=== PATIENT | female | born 1990 | race Caucasian/White ===

== ENCOUNTER 2018-02-08 17:33 | Emergency (ER) | payer OTHER ==
--- NOTE | 2018-02-08 18:12 | ED Physician Documentation ---
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 There is no loss of consciousness and she was doing okay but today she has a gradual onset global headache with light sensitivity and had potentially decreased hearing in the left ear which is now gone.) Review of Systems Constitutional: denies: Fever, Chills Eyes: denies: Loss of vision, Decreased vision, Photophobia Ears: reports: Loss of hearing. denies: Ear pain, Drainage/discharge Nose: denies: Rhinorrhea / runny nose, Congestion PD PAST MEDICAL HISTORY - Present Medications Home Medications: Ambulatory Orders Medication Instructions Recorded Confirmed No Known Home Medications [No 02/08/18 02/08/18 Known Home Medications] - Allergies Allergies/Adverse Reactions: Allergies Allergy/AdvReac Type Severity Reaction Status Date / Time No Known Drug Allergies Allergy Verified 02/08/18 17:42 - Social History Does the pt smoke?: No Smoking Status: Never smoker Does the pt drink ETOH?: Yes Does the pt have substance abuse?: No PD ED PE NORMAL - Vitals Vital signs reviewed: Yes - General General: Alert and oriented X 3, No acute distress - HEENT HEENT: PERRL, EOMI, Ears normal, Moist mucous membranes, Pharynx benign - Neck Neck: Supple, no meningeal sign, No bony TTP - Neuro Neuro: Alert and oriented X 3, Normal speech - Psych Psych: Normal mood, Normal affect Results - Vitals Vitals: Vital Signs - 24 hr 02/08/18 02/08/18 17:37 19:45 Temperature 36.4 C L 37.1 C Heart Rate 67 78 Respiratory 16 18 Rate Blood Pressure 114/61 103/73 O2 Saturation 98 99 Oxygen O2 Source Room air - Rads (name of study) Ct Head Radiology: EMP read contemporaneously (normal) PD MEDICAL DECISION MAKING - ED course ED course: She declines pain medication on initial evaluation. Departure - Departure Disposition: 01 Home, Self Care Clinical Impression: Concussion Qualifiers: Encounter type: initial encounter Loss of consciousness presence/duration: without LOC Qualified Code(s): S06.0X0A - Concussion without loss of consciousness, initial encounter Condition: Stable Instructions: ED Concussion Comments: Call your doctor to arrange a follow-up appointment, make the next available appointment. In the interim, return anytime if worse or if new symptoms develop. Discharge Date/Time: 02/08/18 19:51
--- NOTE | 2018-02-08 19:13 | CT Preliminary Report ---
Exam: CT HEAD W/O IMPRESSION: Normal head CT. [facility] SITE ID: [id number]
--- NOTE | 2018-02-08 19:35 | CT Report ---
EXAM: CT HEAD EXAM DATE: 02/08/2018 06:46 PM. CLINICAL HISTORY: Headache after head trauma. COMPARISON: None. TECHNIQUE: Multiaxial CT images were obtained from the foramen magnum to the vertex. Reformats: Coron al. IV contrast: None. In accordance with CT protocol optimization, one or more of the following dose reduction techniques w ere utilized for this exam: automated exposure control, adjustment of mA and/or KV based on patient s ize, or use of iterative reconstructive technique. FINDINGS: Parenchyma: No intraparenchymal hemorrhage. No evidence of mass, midline shift, or CT findings of inf arction. Bhatia-white differentiation is distinct. Extraaxial Spaces: Normal for age. No subdural or epidural collections identified. Ventricles: Normal in size and position. Sinuses and Orbits: Imaged paranasal sinuses, orbits, and mastoids show no significant abnormality. Bones: No evidence of fracture or calvarial defect. Other: None. IMPRESSION: Normal head CT. [facility] Referring Provider Line: [phone] SITE ID: [id number]
[2018-02-08 19:46] VITALS: BP 103/73
== END 2018-02-08 19:51 | disposition home or self-care (01) ==
LOC: ED 17:33
DX: S06.0X0A Concussion without loss of consciousness, initial encounter (principal); W22.8XXA Striking against or struck by other objects, initial encounter
CPT/HCPCS: 70450; 99283

== ENCOUNTER 2019-05-23 17:50 | Inpatient (IN) | payer OTHER ==
[2019-05-23] MEDS ORDERED: SODIUM CHLORIDE FLUSH 0.9% 10 ML SYRINGE ONE ×2 (18:39→19:12)
--- NOTE | 2019-05-23 19:07 | HISTORY & PHYSICAL EXAMINATION ---
Admit History - Visit Reason Visit Reason: Other (Induction of laborAt 39 weeks and 4 days estimated gestational age) - : 1 Parity: 0 Care: positive: [facility], Other (Transfer of care at 30 weeks estimated gestational age) Risk/History: positive: None Complications This : positive: None Smoking Status: Never smoker - Mother's Labs Mother's Blood Type: positive: O Mother's RH: positive: Positive GBS: positive: Group B Step Negative Rubella Status: positive: Unknown - Other Maternal History Other Maternal History: Patient is a 28-year-old G1, P0 at 39 weeks 4 days estimated gestational age with a that has been uncomplicated to date. She presents presents for elective induction of labor. Initial SVE is 1-09/23/59/-3. She is GBS negative. Blood type is O+. Rubella status is unknown. Glucola was 122. Tdap is complete. Endorses movement. Denies loss of fluid/contractions/vaginal bleeding. Meds/Allgy - Home Medications Home Medications: Ambulatory Orders Medication Instructions Recorded Confirmed No Known Home Medications 02/08/18 02/08/18 - Allergies Allergies/Adverse Reactions: Allergies Allergy/AdvReac Type Severity Reaction Status Date / Time No Known Drug Allergies Allergy Verified 02/08/18 17:42 Review of Systems - Other Findings Other Findings: As per HPI otherwise remaining systems are negative Physical - Abdominal Exam Vital Signs: 118/69 87 17 Contraction Intensity: positive: Irritability Uterine Resting Tone: positive: Soft - Monitoring Strip Review: positive: Category I - Presentation Presentation: positive: Vertex - Vaginal Exam Membranes: positive: Membranes intact Dilation (in cm): 1.5 Effacement (%): 60 Station: positive: -3 Cervical Position: positive: Midposition - Speculum Exam Speculum Exam Performed: positive: No Plan for Labor - Plan For Labor Plan for Labor: 28-year-old G1, P0 at 39 weeks 4 days estimated gestational age here for induction of labor. Induction of labor: -Unfavorable cervix with low Ryan score. Will start with cervical ripening with misoprostol 50 mcg buccal/oral Q4H -We have discussed the possibility of using a Scherer bulb after initiation of misoprostol -Pitocin once cervix is favorable -Consider AROM when appropriate well-being: -Category 1 tracing -GBS negative -Vertex confirmed by bedside ultrasound -Appropriately grown Pain: -Epidural as desired -Nitrous oxide as desired -Fentanyl 50 mcg IV available for maximum dosage of 200 mcg overall. Not to be administered after 7 cm dilation. Anticipate
[2019-05-23] MEDS ORDERED: ONDANSETRON ODT 4 MG TABLET TL PRN (19:15)
[2019-05-23] MEDS ORDERED: METOCLOPRAMIDE 10 MG/2 ML VIAL IVP PRN ×2 (19:15)
[2019-05-23] MEDS ORDERED: miSOPROStoL 200 MCG TABLET PR ONE (19:15)
[2019-05-23] MEDS ORDERED: miSOPROStoL 200 MCG TABLET PR PRN (19:15)
[2019-05-23] MEDS ORDERED: SODIUM CHLORIDE FLUSH 0.9% 10 ML SYRINGE IVP PRN ×2 (19:15)
[2019-05-23] MEDS ORDERED: METHYLERGONOVINE 0.2 MG/ML AMP IM PRN (19:15)
[2019-05-23] MEDS ORDERED: METOCLOPRAMIDE 10 MG TABLET PO PRN (19:15)
[2019-05-23] MEDS ORDERED: ONDANSETRON 4 MG/2 ML VIAL IVP PRN ×2 (19:15)
[2019-05-23] MEDS ORDERED: OXYTOCIN/DEXTROSE 5 % 30 UNIT/500 ML BAG IV PRN (19:15)
[2019-05-23] MEDS ORDERED: CARBOPROST TROMETHAMINE 250 MCG/ML AMP IM PRN (19:15)
[2019-05-23] MEDS ORDERED: NALBUPHINE 10 MG/ML AMP IVP PRN (19:28)
[2019-05-23] MEDS ORDERED: diphenhydrAMINE INJ 50 MG/ML VIAL IVP PRN (19:28)
[2019-05-23] MEDS ORDERED: diphenhydrAMINE 25 MG CAPSULE PO PRN (19:28)
[2019-05-23 19:34] LABS: BASOPHILS % (AUTO) 0.3 %; EOSINOPHILS # (AUTO) 0.1 10^3/uL (0.0-0.7); EOSINOPHILS % (AUTO) 0.8 %; HGB - HEMOGLOBIN 11.5 g/dL (12.0-16.0); LYMPHOCYTES # (AUTO) 2.3 10^3/uL (1.5-3.5); LYMPHOCYTES % (AUTO) 21.9 %; MEAN CORPUSCULAR HEMOGLOBIN 27.3 pg (27.0-31.0); MEAN CORPUSCULAR HGB CONC 33.8 g/dL (32.0-36.0); MEAN CORPUSCULAR VOLUME 80.6 fL (81.0-99.0); MEAN PLATELET VOLUME 12.1 fL (7.9-10.8); MONOCYTES # (AUTO) 0.7 10^3/uL (0.0-1.0); MONOCYTES % (AUTO) 7.1 %; NEUTROPHILS # (AUTO) 7.1 10^3/uL (1.5-6.6); NEUTROPHILS % (AUTO) 69.2 %; PLT - PLATELET COUNT 151 10^3/uL (130-450); RED BLOOD COUNT 4.22 10^6/uL (4.20-5.40); RED CELL DISTRIBUTION WIDTH 13.6 % (12.0-15.0); WHITE BLOOD COUNT 10.3 x10^3/uL (4.8-10.8)
[2019-05-23] MEDS: miSOPROStoL 100 MCG TABLET BC SCH (20:20)
[2019-05-23] MEDS: ACETAMINOPHEN 325 MG TABLET PO SCH (23:33)
[2019-05-24] MEDS: miSOPROStoL 100 MCG TABLET BC SCH ×5 (00:19→13:25)
[2019-05-24] MEDS: SODIUM CHLORIDE FLUSH 0.9% 10 ML SYRINGE IVP SCH ×2 (00:22→21:15)
[2019-05-24] MEDS ORDERED: SODIUM CHLORIDE FLUSH 0.9% 10 ML SYRINGE IVP SCH (01:00)
--- NOTE | 2019-05-24 01:19 | PROVIDER PROGRESS NOTE ---
Labor Progress Note - Uterine Monitoring Contraction Frequency (min/apart): Intermittent Contraction Intensity: positive: Mild - Monitoring Monitor Mode: positive: External ultrasound Heart Rate Baseline: 130 Heart Rate Variability: positive: Moderate (6-25 bmp) Accelerations: positive: Present, 15x15 Decelerations: positive: None Strip Review: positive: Category I - Labor Progress Note Labor Progress Note/Additional Text: Status post misoprostol 50 mcg x 2 Category 1 tracing Continue to monitor and progress with cervical ripening
[2019-05-24] MEDS: LEVOTHYROXINE 25 MCG TABLET PO SCH (05:53)
[2019-05-24] MEDS: OXYTOCIN/DEXTROSE 5 % 30 UNIT/500 ML BAG IV SCH (05:59)
[2019-05-24] MEDS: LACTATED RINGERS 1,000 ML IV SCH ×4 (06:00→21:15)
[2019-05-24] MEDS: ACETAMINOPHEN 325 MG TABLET PO SCH (06:01)
--- NOTE | 2019-05-24 13:28 | PROVIDER PROGRESS NOTE ---
Labor Progress Note - Uterine Monitoring Contraction Frequency (min/apart): Q3 min Contraction Intensity: positive: Mild to moderate Uterine Resting Tone: positive: Soft - Monitoring Monitor Mode: positive: External ultrasound Heart Rate Baseline: 135 Heart Rate Variability: positive: Moderate (6-25 bmp) Accelerations: positive: Present, 15x15 Decelerations: positive: None (Cat I tracing) Strip Review: positive: Category I - Vaginal Exam Dilation (in cm): 2 Effacement (%): 80 Station: -1 Cervical Position: Midposition - Labor Progress Note Labor Progress Note/Additional Text: No complaints. Contractions beginning to get more uncomfortable and are apparent at the top of the uterus as well is in the lower pubic area. Status post misoprostol 50 mcg BC x4. Due for fifth dose now. Will continue with cervical ripening and consider placement of Scherer balloon after fifth or sixth dose Category 1 tracing Anticipate
--- NOTE | 2019-05-24 22:45 | PROVIDER PROGRESS NOTE ---
Subjective - Prog Note Date Prog Note Date: 05/24/19 Prog Note Time: 22:20 - Subjective Subjective: CTX Painful. Status post misoprostol x5 doses. Unsure if she wants an epidural yet at this point. Manpreet every 3 to 4 minutes. No loss of fluid no vaginal bleeding Objective - Vital Signs/Intake & Output Intake & Output: Intake & Output 05/21/19 05/22/19 05/23/19 05/24/19 23:59 23:59 23:59 23:59 Intake Total 800 Balance 800 - Lab Results Fish Bones: 05/23/19 18:40 - Other Results/Comments Other Results/Comments: SVE 2/90/ 0 mid membranes intact Category 1 tracing Assessment/Plan - Problem List (1) Elective induction of labor planned Impression: Status post misoprostol 50 mcg BC x5 Manpreet too frequently for misoprostol at this time; SVE unchanged. Scherer balloon placed with 40 in the uterine balloon and 20 in the vaginal balloon. Category 1 tracing Anticipate
[2019-05-24] MEDS: fentaNYL 100 MCG/2 ML VIAL IVP PRN ×2 (22:46→23:50)
[2019-05-25] MEDS: fentaNYL 100 MCG/2 ML VIAL IVP PRN ×2 (00:48→01:53)
[2019-05-25] MEDS: LACTATED RINGERS 1,000 ML IV SCH ×5 (01:54→20:49)
--- NOTE | 2019-05-25 04:05 | ANESTHESIA ---
Pre-Anesthesia VS, & Labs - Diagnosis Active labor - Procedure vaginal delivery Height 5 ft 4 in Weight (kg) 70.632 kg Body Mass Index 20.5 - NPO Last Fluid Intake: sips of H2O Last Food Intake: 1900 - Is Patient ?: Yes - Lab Results Current Lab Results: Laboratory Tests 05/23/19 18:40: WBC 10.3, RBC 4.22, Hgb 11.5 L, Hct 34.0 L, MCV 80.6 L, MCH 27.3, MCHC 33.8, RDW 13.6, Plt Count 151, MPV 12.1 H, Neut # (Auto) 7.1 H, Lymph # (Auto) 2.3, [place] # (Auto) 0.7, Eos # (Auto) 0.1, Baso # (Auto) 0.0, Absolute Nucleated RBC 0.00, Nucleated RBC % 0.0 Fish Bones: 05/23/19 18:40 Home Medications and Allergies Active Medications Acetaminophen (Tylenol) 650 mg PO Q6H [facility] Last Admin: 05/24/19 06:01 Dose: Not Given Diphenhydramine HCl (Benadryl) 25 mg PO QPM PRN PRN Reason: Insomnia Last Admin: 05/24/19 00:31 Dose: 25 mg Diphenhydramine HCl (Benadryl Inj) 25 mg IVP Q6H PRN PRN Reason: Allergy Symptoms Lactated Ringer's (Lr) 1,000 mls @ 150 mls/hr IV .Q6H40M [facility] Last Admin: 05/25/19 01:54 Dose: 150 mls/hr Lactated Ringer's (Lr) 1,000 mls @ 100 mls/hr IV .Q10H [facility] Last Admin: 05/24/19 06:00 Dose: Not Given OXYTOCIN/DEXTROSE 5 % (Pitocin/Dextrose 5%) 30 unit in 500 mls @ 1 mls/hr IV TITR [facility]; Protocol Last Admin: 05/24/19 05:59 Dose: Not Given OXYTOCIN/DEXTROSE 5 % (Pitocin/Dextrose 5%) 30 unit in 500 mls @ 999 mls/hr IV PRN PRN; Protocol PRN Reason: POST- HEMORR PREVENTION Levothyroxine Sodium (Synthroid) 50 mcg PO QDAC [facility] Last Admin: 05/24/19 05:53 Dose: 50 mcg Methylergonovine Maleate (Methergine Inj) 0.2 mg IM Q4H PRN PRN Reason: Post- Hemorrhage Metoclopramide HCl (Reglan) 10 mg PO Q6H PRN PRN Reason: Nausea / Vomiting Metoclopramide HCl (Reglan Inj) 10 mg IVP Q6H PRN PRN Reason: Nausea / Vomiting Nalbuphine HCl (Nubain) 5 mg IVP PRN PRN PRN Reason: ITCHING Ondansetron HCl (Zofran Inj) 4 mg IVP Q4H PRN PRN Reason: Nausea / Vomiting Ondansetron HCl (Zofran Odt) 4 mg TL Q4HR PRN PRN Reason: Nausea / Vomiting Sodium Chloride (Normal Saline Flush 0.9%) 10 ml IVP PRN PRN PRN Reason: NEEDED PER PROVIDER ORDERS Last Admin: 05/24/19 13:02 Dose: 10 ml Sodium Chloride (Normal Saline Flush 0.9%) 10 ml IVP 0100,0900,1700 [facility]O Last Admin: 05/24/19 21:15 Dose: 10 ml No Known Home Medications 02/08/18 Synthroid po Allergies/Adverse Reactions: Allergies Allergy/AdvReac Type Severity Reaction Status Date / Time No Known Drug Allergies Allergy Verified 02/08/18 17:42 Anes History & Medical History - Anesthetic History Family history of Anesthesia Complications: Denies Family history of Malignant Hyperthermia: Denies - Medical History Cardiovascular: reports: None Pulmonary: reports: None Gastrointestinal: reports: GERD (during ) Urinary: reports: None Neuro: reports: None Musculoskeletal: reports: None Endocrine/Autoimmune: reports: HyPOthyroidism Blood Disorders: reports: None Skin: reports: None Smoking Status: Never smoker Psychosocial: reports: No issues indicated - Obstetrical History : 1 Parity: 0 Events: positive: None Complications: positive: None Exam General: Alert, Oriented x3, Cooperative, No acute distress Dental: WNL Mouth Openin Fingerbreadth Neck Mobility: Normal Mallampati classification: II Thyromental Distance: greater than 6 cm Plan Anesthesia Type: Epidural Consent for Procedure(s) Verified and Reviewed: Yes Code Status: Attempt Resuscitation ASA classification: 2-Mild systemic disease Is this case an emergency?: No
[2019-05-25] MEDS ORDERED: fent/BUPIV 2 MCG/0.125% 250 ML EP ONE (04:11)
[2019-05-25] MEDS ORDERED: NALBUPHINE 10 MG/ML AMP IVP PRN (04:47)
[2019-05-25] MEDS ORDERED: ONDANSETRON 4 MG/2 ML VIAL IVP PRN (04:47)
[2019-05-25] MEDS ORDERED: fent/BUPIV 2 MCG/0.125% 250 ML EP PRN (04:47)
[2019-05-25] MEDS ORDERED: NALOXONE 0.4 MG/ML VIAL IVP PRN (04:47)
[2019-05-25] MEDS: LEVOTHYROXINE 25 MCG TABLET PO SCH (05:27)
[2019-05-25] MEDS: ePHEDrine 50 MG/ML VIAL IVP PRN ×5 (05:58→06:40)
[2019-05-25] MEDS ORDERED: ePHEDrine 50 MG/ML VIAL IVP ONE (05:59)
[2019-05-25] MEDS: SODIUM CHLORIDE FLUSH 0.9% 10 ML SYRINGE IVP SCH (08:30)
[2019-05-25] MEDS: OXYTOCIN/DEXTROSE 5 % 30 UNIT/500 ML BAG IV SCH (08:30)
--- NOTE | 2019-05-25 14:36 | PROVIDER PROGRESS NOTE ---
Subjective - Prog Note Date Prog Note Date: 05/25/19 Prog Note Time: 13:00 (reflects culmination of multple events) - Subjective Subjective: Scherer balloon fell out at approximately 1 this a.m. SVE at that time was 460 and -1. Membranes were intact. Kaylee has had an epidural placed. Tracing has alternated between periods of category 1 and category 2 with category 2. Is notable for minimal variability and lack of accelerations. tracing responds well to scalp stim and acoustic stem. Underwent AROM notable for passage of blood-tinged fluid. No further vaginal bleeding. Pitocin has been started at 1 milliunit/min. One episode of vomiting after drinking a protein juice. Otherwise pain is well controlled with LEP and patient is without complaint. Objective - Vital Signs/Intake & Output Intake & Output: Intake & Output 05/22/19 05/23/19 05/24/19 05/25/19 23:59 23:59 23:59 23:59 Intake Total 800 2657.5 Output Total 450 Balance 800 2207.5 - Objective General Appearance: positive: No acute distress Eyes: OD Lid inflammation Respiratory: positive: Chest non-tender, No respiratory distress Cardiovascular: positive: Regular rate & rhythm Abdomen: positive: Non-tender Back: positive: Nml inspection Skin: positive: Color nml Extremities: positive: Non-tender Neurologic/Psychiatric: positive: Oriented x3 - Lab Results Fish Bones: 05/23/19 18:40 Assessment/Plan - Problem List (1) Elective induction of labor planned Impression: Induction of labor: -Status post misoprostol x5 doses -Scherer bulb placed and fell out -Status post AROM notable for passage of blood-tinged fluid; now clear -Pitocin initiated per protocol well-being: -Category 1 tracing with extended periods of category 2 tracing. Responds appropriately to head stimulation and vibracoustic stim. -Continue to monitor closely Continue with induction of labor. Close monitoring given intermittent periods of category 2 tracing. tracing continues to show reactivity to stimulation. Pitocin per protocol Anticipate
[2019-05-25] MEDS ORDERED: LACTATED RINGERS 1,000 ML IV ONE (20:59)
[2019-05-26] MEDS ORDERED: WITCH HAZEL/GLYCERIN 1 PAD TOP PRN (00:28)
[2019-05-26] MEDS ORDERED: HYDROCORTISONE 1% CREAM 28 GM TUBE PR PRN (00:28)
--- NOTE | 2019-05-26 00:33 | DELIVERY NOTE ---
Delivery Note - Labor Labor: positive: Induced by oxytocin - Infant Delivery Method Delivery Method: positive: Spontaneous vaginal delivery - Cervical Ripening Method Cervical Ripening Method: positive: Balloon device, Misoprostil - Presentation Presentation: positive: Vertex - Nuchal Cord Nuchal Cord: positive: None - Anesthetic Anesthetic Type: - Amniotic Fluid Description Amniotic Fluid Description: positive: Bloody - Laceration Laceration: positive: None - Delivery Outcome Delivery Outcome: positive: Livebirth - [place]: positive: Placed in direct skin contact with mother, Suctioned, Bulb syringe, Stimulated, Warmed, [place] used [place] sex: positive: Male - Cord Cord: positive: 3 vessels - Placenta Placenta: positive: Intact - Estimated Blood Loss Estimated Blood Loss (in cc): 100 - Post Delivery Events Post Delivery Events: positive: No post delivery events - Delivery Comments (Free Text/Narrative) Delivery Comments (Free Text/Narrative): Patient is a 28-year-old G1 now P1 admitted at At 39+5 weeks estimated gestational age for elective induction of labor. Initial SVE was 2/60/-2. Induction of labor was started with misoprostol 50 mcg BC every 4 hours for total of 5 doses received. After the fifth dose of misoprostol she was ger too frequently to give an additional dose. A Scherer balloon was then placed. GBS was negative; antibiotics were not indicated. She underwent AROM notable for passage of blood-tinged fluid. Epidural for pain management. tracing was category 1 to category 2. There was periods of decreased variability and lack of accelerations that resolved with fiber acoustic stem or head stem. At approximately 8 PM on 05/25/2019, she was noted to be completely dilated. She labored down for 1 hour. She then pushed well to deliver a viable male infant with Apgars of 6 and 8. Weight pending. Infant was delivered to mother's chest. Stimulated with warm blankets and bulb suctioned on mother's chest. Cord was clamped x2 and cut after pulsations had ceased. Placenta was delivered with manual expression and gentle downward traction on the cord. It was examined and found to be intact. Inspection of the perineum revealed no lacerations. No repair was indicated. EBL is 100 cc. Delivery was uncomplicated and well-tolerated.
[2019-05-26] MEDS ORDERED: LACTATED RINGERS 1,000 ML IV SCH (01:00)
[2019-05-26] MEDS ORDERED: ACETAMINOPHEN 500 MG TABLET PO SCH (01:00)
[2019-05-26] MEDS: IBUPROFEN 600 MG TABLET PO PRN ×4 (01:09→20:28)
[2019-05-26] MEDS: LEVOTHYROXINE 25 MCG TABLET PO SCH (06:32)
--- NOTE | 2019-05-26 17:36 | PROVIDER PROGRESS NOTE ---
Subjective - Prog Note Date Prog Note Date: 05/26/19 Prog Note Time: 13:31 - Subjective Pt reports feeling: Improved ( day 1 status post Doing well . Up and ambulating, tolerating p.o., voiding, pain well managed. Breast-feeding is going well. Lochia is minimal. Patient has no complaints) Objective - Vital Signs/Intake & Output Vital Signs: Vital Signs x48h Temp Pulse Resp BP Pulse Ox 05/26/19 17:20 97.7 F 52 L 16 138/70 H 100 05/26/19 11:30 98.2 F 65 16 109/72 100 Intake & Output: Intake & Output 05/23/19 05/24/19 05/25/19 05/26/19 23:59 23:59 23:59 23:59 Intake Total 800 3917.967 1250 Output Total 850 1955 Balance 800 3067.967 -705 - Objective General Appearance: positive: No acute distress Neck: positive: Nml inspection Respiratory: positive: Chest non-tender, No respiratory distress Cardiovascular: positive: Regular rate & rhythm, No murmur Abdomen: positive: Non-tender, Other (Fundus firm below the umbilicus) Skin: positive: Color nml Extremities: positive: Non-tender, No pedal edema Neurologic/Psychiatric: positive: Oriented x3 - Lab Results Fish Bones: 05/23/19 18:40 Assessment/Plan - Problem List (1) Elective induction of labor planned Impression: day 1 status post Doing well . Progressing well towards meeting goals goals discharge Anticipate DC home in the morning.
[2019-05-27] MEDS: IBUPROFEN 600 MG TABLET PO PRN ×3 (02:40→15:02)
[2019-05-27] MEDS: LEVOTHYROXINE 25 MCG TABLET PO SCH (05:43)
[2019-05-27 08:18] VITALS: BP 114/60
--- NOTE | 2019-05-27 15:40 | Labor Flowsheet ---
Labor Flowsheet Datetime Report Generated by CPN: 05/27/2019 15:39 Datetime: 05/27/2019 07:55 VITAL SIGNS NBP Sys/Alysha/Mean (mmHg): 114 : 60 : 72 Pulse: 57 LaborFlag: Labor Datetime: 05/26/2019 11:28 SpO2 (%): 99 Datetime: 05/25/2019 23:00 ASSESSMENT A Monitor Mode: External US FHR Baseline Rate : 150 Variability: Moderate 6-25 bpm Accelerations: 15X15 Decelerations: Variable (Annotations: deceleration to 110's with return to baseline) Datetime: 05/25/2019 22:45 FHR Baseline Changes: Bradycardia Category: Category II Comments: deceleration to 90's with some contractions with return to baseline Oxygen Method: Face Mask Datetime: 05/25/2019 22:29 UTERINE ACTIVITY Monitor Mode: External Frequency (min): 2-3 Quality: Strong Duration (sec): 90 Pattern: Normal: <= 5 Contractions in 10 Minutes Resting Tone (Palpate): Relaxed Contraction Comments: pushing well with contractions Datetime: 05/25/2019 22:15 Actions for Decelerations: IV Bolus Oxygen Amount (LPM): 10 Datetime: 05/25/2019 21:55 MEDICATIONS Pitocin (milliunits): Increased to @ 12 Datetime: 05/25/2019 21:25 Anesthesia Level Check: T10- Umbilicus Anesthesia Comments: pt feels epidural "wearing off" Datetime: 05/25/2019 20:46 Patient Position/Activity: Left Lateral Patient Care Comments: peanut ball in place Datetime: 05/25/2019 18:30 Monitor Interventions for UA: [place] Adjusted Pitocin Checklist: At Least 1 Acceleration of 15 bpm x 15 Seconds in 30 Minutes or Adequate Variabi lity Datetime: 05/25/2019 18:01 Pain Presence: None/Denies Pain Type: Pressure Pain Assessment Comments: Pt feeling some pelvic pressure Datetime: 05/25/2019 18:00 Temperature (C): 36.8 Datetime: 05/25/2019 17:53 VAGINAL EXAM Dilatation (cm): 7.0 Effacement (%): 100 Station: 0 Exam by: Vaginal Bleeding: Normal Show Cervix, Position: Anterior Provider Reviewed Strip: No Strip Reviewed by: LI Cruz COMMUNICATION Communication: Call/Page Placed to Provider Provider Notified (Name): Dr. Cabrera Notification Reason: Labor Status Communication Comments: MD notified pt now 7-8cm/100/0 Datetime: 05/25/2019 17:02 Hygiene: Rachna Care Datetime: 05/25/2019 16:49 Antiemetics/Antacids: Zofran (mg) @ 4 Medication Comments: Pt vomiting Datetime: 05/25/2019 16:03 ANESTHESIA Anesthesia Plans: Epidural Datetime: 05/25/2019 15:32 Cervix, Consistency: Moderate Datetime: 05/25/2019 15:30 Monitor Interventions for FHR: Ultrasound Adjusted MATERNAL ASSESSMENT Level of Consciousness: Fully Conscious DTR's/Clonus: DTRs 2+ Headache: Denies Nausea/Vomiting: Denies RUQ Epigastric Pain: Denies Datetime: 05/25/2019 13:00 Respirations: 15 Datetime: 05/25/2019 12:02 Membrane Status: Ruptured Membranes Rupture Method: Artificial Amniotic Fluid Color: Bloody Amniotic Fluid Amount: Moderate Datetime: 05/25/2019 11:36 PATIENT CARE IV/Blood Work: IV Bolus Started Datetime: 05/25/2019 07:00 I/O Interventions: Acuna Cath Inserted Datetime: 05/25/2019 04:29 Epidural Procedure: Test Dose Datetime: 05/25/2019 04:10 PROCEDURE TIME OUT Procedure Verify: Correct Patient Identity; Accurate Procedure Consent Form; Agreement on Procedure to be Done Datetime: 05/25/2019 01:50 PAIN Pain Scale: 8 Pain Location: Abdomen Pain Relief Measures: Pain Medication Given Pain Coping: Breathing Through Contractions Analgesics/Sedatives: Fentanyl (mcg) @ 50 Datetime: 05/25/2019 00:57 Vaginal Exam Comments: 4-5cm. Provider able to remove acuna balloon at this time Datetime: 05/24/2019 23:07 Stage of : Recovery Datetime: 05/24/2019 22:50 Comfort Measures: Breathing/Relaxation Datetime: 05/24/2019 19:22 Breath Sounds, Left: Clear and Equal Breath Sounds, Right: Clear and Equal Datetime: 05/24/2019 18:17 Cervical Ripening Agents: Cytotec @ 0 Datetime: 05/24/2019 04:23 Temperature Route: Oral
--- NOTE | 2019-05-28 17:30 | PROVIDER PROGRESS NOTE ---
Subjective - Prog Note Date Prog Note Date: 05/27/19 Prog Note Time: 12:00 - Subjective Pt reports feeling: Improved (Doing well. Up and ambulating, tolerating p.o., voiding, pain managed with almost no pain medication. Desires discharge home.) Objective - Vital Signs/Intake & Output Reviewed Vital Signs: Yes Intake & Output: Intake & Output 05/25/19 05/26/19 05/27/19 05/28/19 23:59 23:59 23:59 23:59 Intake Total 3917.967 1250 300 Output Total 850 1955 Balance 3067.967 -243 300 - Objective General Appearance: positive: No acute distress Neck: positive: Nml inspection Respiratory: positive: Chest non-tender Cardiovascular: positive: Regular rate & rhythm Abdomen: positive: Non-tender, Other (Fundus firm below the umbilicus) Extremities: positive: Non-tender Neurologic/Psychiatric: positive: Oriented x3 - Lab Results Fish Bones: 05/23/19 18:40 Assessment/Plan - Problem List (1) Elective induction of labor planned Impression: day 2 status post Meeting goals for discharge Discharge to home Routine discharge instructions given
--- NOTE | 2019-05-31 20:42 | DISCHARGE SUMMARY ---
"Discharge Summary Admit Date: 05/23/19 Discharge Date: 05/27/19 Discharging Provider: Margi Cabrera MD Code Status: Attempt Resuscitation Condition at Discharge: Good Discharge Disposition: 01 Home, Self Care - DIAGNOSES Admission Diagnoses: Intrauterine at 39 weeks 4 days estimated gestational age Elective induction of labor - HPI History of Present Illness: Patient is a 28-year-old G1, P0 who presented at 39 weeks 4 days estimated gestational age with an uncomplicated . She presented for elective induction of labor. Initial SVE was 1-//60/-3. She was GBS negative. Blood type is O+. Rubella status unknown. Glucola was 122. Tdap is complete. - CONSULTS | PROCEDURES Procedures: Spontaneous vaginal delivery - HOSPITAL COURSE Hospital Course: Patient is a 28-year-old G1 now P1 admitted at At 39+5 weeks estimated gest ational age for elective induction of labor. Initial SVE was 260/-2. Induction of labor was started with misoprostol 50 mcg BC every 4 hours for total of 5 doses received. After the fifth dose of m isoprostol she was ger too frequently to give an additional dose. A Scherer balloon was then placed. GBS was negative; antibiotics were not indicated. She underwent AROM, notable for passage of blood-tinged fluid. Epidural for pain management. tracing was category 1 to category 2. There was periods of decreased variability and lack of accelerations that resolved with vibro-acoustic stem or head stim. At approximately 8 PM on 05/25/2019, she was noted to be completely dilated. She labored down for 1 hour. She then pushed well to deliver a viable male infant with Apgars of 6 and 8. Infant was delivered to mother's chest. Stimulated with warm blankets and bulb suctioned on mother's chest. Cord was clamped x2 and cut after pulsations had ceased. Placenta was delivered with manual expression and gentle downward traction on the cord. It was examined and found to be intact. Inspection of the perineum revealed no lacerations. No repair was indicated. EBL is 100 cc. Delivery was uncomplicated and well-tolerated. course was uncomplicated. By day 2 she was meeting goals for discharge.Discharge to home with routine discharge instructions - ALLERGIES Allergies/Adverse Reactions: Allergies Allergy/AdvReac Type Severity Reaction Status Date / Time No Known Drug Allergies Allergy Verified 02/08/18 17:42 - MEDICATIONS Home Medications: Ambulatory Orders Medication Instructions Recorded Confirmed No Known Home Medications 02/08/18 02/08/18 - LABS Result Diagrams: 05/23/19 18:40 - FOLLOW UP Follow Up: Follow-up in 1 in 6 weeks per routine protocol - TIME SPENT Time Spent in Discharge (Minutes): 30"
== END 2019-05-27 15:30 | disposition home or self-care (01) | DRG 807 ==
LOC: WFO 17:50 → FBP 17:57 → WFO 20:56 → FBP 20:57 → UNDOADMOB 20:57 → INTOOBSV 05-25 04:28 → OBSVTOIN 05-25 04:28 → INTOOBSV 05-26 00:55 → OBSVTOIN 05-26 00:55 → WFO 05-27 15:30 → FBP 05-27 15:30 → UNDODISIN 05-27 15:30
PROVIDERS: ADMIT Obstetrics & Gynecology; ATTEND Obstetrics & Gynecology
PROC: 0U7C7ZZ Dilation of Cervix, Via Natural or Artificial Opening (ICD-10-PCS; 2019-05-24)
PROC: 10907ZC Drainage of Amniotic Fluid, Therapeutic from Products of Conception, Via Natural or Artificial Opening (ICD-10-PCS; 2019-05-25)
PROC: 10E0XZZ Delivery of Products of Conception, External Approach (ICD-10-PCS; principal; 2019-05-26)
DX: O76 Abnormality in fetal heart rate and rhythm complicating labor and delivery (principal); Z37.0 Single live birth; Z3A.39 39 weeks gestation of pregnancy
CPT/HCPCS: 59200; 85025; A9270; G0378; J7120